=== PATIENT | female | born 2000 | race Hispanic/Latino ===

== ENCOUNTER → 2025-06-25 10:09 | Outpatient (CLI) | payer SELFPAY ==
[2025-06-25 10:46] LABS: Add Manual Diff / Slide Review NO; Hematocrit 28.5 % (36-46); Hemoglobin 8.5 g/dL (12.0-16.0); Lymphocytes Absolute Auto 2500 /uL (1100-4500); Mean Corpuscular HGB Conc 29.8 % (30-36); Mean Corpuscular Hemoglobin 18.1 PG (26-34); Mean Corpuscular Volume 60.7 fL (80-100); Platelet Count 426 X10^3/uL (150-400)
[2025-06-25 10:55] LABS: Anisocytosis 2+; Poikilocytosis 1+
[2025-06-25 11:05] LABS: Alanine Aminotransferase 13 IU/L (<35); Albumin 4.3 g/dL (3.5-5.0); Albumin Globulin Ratio 1.3 (1.0-2.8); Alkaline Phosphatase 88 U/L (38-126); Blood Urea Nitrogen 17 mg/dL (7-17); Calcium 9.1 mg/dL (8.4-10.2); Carbon Dioxide 26 mmol/L (22-32); Chloride 105 mmol/L (98-107); Estimated Glomerular Filt Rate > 60 mL/min (>60); Globulin 3.2 g/dL (1.7-4.1); Glucose 102 mg/dL (70-99); HEMOLYSIS < 15 (0-50); Potassium 4.2 mmol/L (3.4-5.1); Sodium 139 mmol/L (137-145); Total Protein 7.5 g/dL (6.3-8.2)
[2025-06-25 11:20] LABS: Vitamin D 25 Hydroxy (D3) 25.5 ng/mL (30.0-100.0)
[2025-06-25 11:35] LABS: TSH w/ Reflex to FT4 2.24 uIU/mL (0.47-4.68)
== END ==
PROVIDERS: PCP Physician Assistant; Referring Provider Physician Assistant; Visit Provider Physician Assistant
DX: R53.83 Other fatigue (principal); L65.9 Nonscarring hair loss, unspecified; E55.9 Vitamin D deficiency, unspecified
CPT/HCPCS: 36415; 80053; 82306; 84443; 85025